=== PATIENT | female | born 1985 | race Caucasian/White ===

== ENCOUNTER 2017-04-24 14:59 | Outpatient (CLI) | payer OTHER ==
[2017-04-24 16:46] VITALS: BP 108/61
--- NOTE | 2017-04-25 08:39 | Ultrasound Report ---
BIOPHYSICAL PROFILE: INDICATION: KATY. COMPARISON: None similar. TECHNIQUE: Transabdominal ultrasound with Doppler interrogation. 2 - breathing movements 2 - movements 2 - posture and tone 2 - Qualitative amniotic fluid volume 8 - TOTAL SCORE OF POSSIBLE 8 Heart Rate (bpm) 147 CONCLUSION: Findings, as above.
--- NOTE | 2017-04-25 08:40 | Ultrasound Report ---
OB LIMITED INDICATION: KATY. COMPARISON: None similar at this institution. TECHNIQUE: Transabdominal grayscale ultrasound with Doppler interrogation. Gestation: [place] Position: Cephalic Amniotic Fluid: WNL (7-24 cm) KATY = 20.5 cm Heart Rate: 147 BPM CONCLUSION: Findings, as above.
== END 2017-04-24 17:57 | disposition home or self-care (01) ==
LOC: TRG 14:59
PROVIDERS: ATTEND Obstetrics & Gynecology
DX: O47.1 False labor at or after 37 completed weeks of gestation (principal); Z3A.37 37 weeks gestation of pregnancy
CPT/HCPCS: 59025; 76815; 76819

== ENCOUNTER 2017-04-28 14:26 | Outpatient (CLI) | payer OTHER ==
[2017-04-28 14:47] VITALS: BP 102/59
== END 2017-04-28 17:59 | disposition home or self-care (01) ==
LOC: TRG 14:26
PROVIDERS: ATTEND Obstetrics & Gynecology
DX: O47.1 False labor at or after 37 completed weeks of gestation (principal); Z3A.38 38 weeks gestation of pregnancy

== ENCOUNTER 2017-05-09 05:44 | Inpatient (IN) | payer OTHER ==
[2017-05-09] MEDS ORDERED: LACTATED RINGERS 2,000 ML ONE (06:26)
[2017-05-09] MEDS ORDERED: SUBLIMAZE IV ONE (06:41)
[2017-05-09] MEDS ORDERED: SUBLIMAZE ONE (06:43)
[2017-05-09] MEDS ORDERED: LACTATED RINGERS 1,000 ML IV ONE (06:44)
[2017-05-09] MEDS ORDERED: LACTATED RINGERS 1,000 ML IV SCH (07:00)
[2017-05-09] MEDS ORDERED: PITOCin/NS 20 UNIT/1000ML DRIP 20 UNITS/1,000 ML BAG IV SCH (07:00)
[2017-05-09 07:04] LABS: Hemoglobin 13.3 gm/dl (10.1-14.3); White Blood Count 15.4 K/mm3 (4.5-11.0)
[2017-05-09 07:11] LABS: Hematocrit 40.1 % (30.3-42.9); Mean Corpuscular HGB Conc 33 % (30-34); Mean Corpuscular Hemoglobin 32 pg (28-32); Mean Corpuscular Volume 96 fl (79-97); Platelet Count 267 K/mm3 (140-440); Red Blood Count 4.16 M/mm3 (3.65-5.03)
[2017-05-09] MEDS ORDERED: ePHEDrine SULFATE ONE (07:40)
--- NOTE | 2017-05-09 07:54 | Anesthesia Consultation ---
Anesthesia Consult and Med Hx Date of service: 05/09/17 - Airway Anesthetic Teeth Evaluation: Good ROM Head & Neck: Adequate Mental/Hyoid Distance: Adequate Mallampati Class: Class II - Pre-Operative Health Status ASA Pre-Surgery Classification: ASA3 Proposed Anesthetic Plan: Epidural, Spinal - Pulmonary Hx Asthma: No COPD: No Hx Pneumonia: No - Cardiovascular System Hx Hypertension: No - Central Nervous System Hx Seizures: No Hx Psychiatric Problems: No - Endocrine Hx Renal Disease: No Hx End Stage Renal Disease: No Hx Hypothyroidism: No Hx Hyperthyroidism: No - Hematic Hx Anemia: No Hx Sickle Cell Disease: No - Other Systems Hx Alcohol Use: No Hx Obesity: Yes (Morbid obesity, BMI 43.3)
--- NOTE | 2017-05-09 07:55 | History and Physical Report ---
History of Present Illness Date of examination: 05/09/17 Date of admission: 05/09/17 06:06 History of present illness: 31 yo LMP EDC 05/11/2017 @ 39.5 weeks gestation presented to triage at 8- 9cm. Patient was a transfer into care at 32 weeks gestation. course complicated by obesity with normal early GCT and second trimester GCT. Documented complete previa at 15 weeks, with anterior placenta documented on 03/21/17. S>D 04/18 @ 37 weeks EFW 7-12oz, KATY: 16cm. She is GBS negative. Past History Past Medical History: no pertinent history Past Surgical History: no surgical history Family/Genetic History: none - Obstetrical History Expected Date of Delivery: 05/11/17 Actual Gestation: 39 Week(s) 5 Day(s) : 2 Para: 1 (8-9oz female 2012) Hx # Term Pregnancies: 1 Number of Pregnancies: 0 Number of Living Children: 1 Medications and Allergies Allergies Allergy/AdvReac Type Severity Reaction Status Date / Time No Known Allergies Allergy Verified 05/09/17 06:34 Home Medications Medication Instructions Recorded Confirmed Last Taken Type Acetaminophen [Non-Aspirin] 325 mg PO PRN 05/09/17 05/09/17 1 Week Ago History ~05/02/17 Vit No.130/Iron/Folic 1 each PO QDAY 05/09/17 05/09/17 3 Days Ago History [ Tablet] ~05/06/17 Active Meds: Active Medications Lactated Ringer's (Lactated Ringers) 1,000 mls @ 999 mls/hr IV BOLUS ONE Stop: 05/09/17 07:44 Lactated Ringer's (Lactated Ringers) 1,000 mls @ 125 mls/hr IV DIRECT NAIF Last Admin: 05/09/17 06:30 Dose: 999 mls/hr Oxytocin/Sodium Chloride (Pitocin/Ns 20 Unit/1000ml Drip) 20 units in 1,000 mls @ 0 mls/hr IV DIRECT NAIF PRN Reason: As Directed Review of Systems All systems: negative Genitourinary: normal appearance, contractions, no leakage of fluid - Vital Signs Vital signs: Vital Signs Pulse BP 91 H 139/64 05/09/17 06:23 05/09/17 06:23 Temp Pulse Resp BP Pulse Ox 98.3 F 88 22 82/39 94 05/09/17 06:29 05/09/17 07:45 05/09/17 06:29 05/09/17 07:45 05/09/17 07:41 - Physical Exam Abdomen: Positive: normal appearance Vagina: Positive: normal moisture - Obstetrical FHR: category 2 FHR comments: minimal variability Uterine Contraction Monitor Mode: External Cervical Dilatation: 9.9 Cervical Effacement Percentage: 90 station: -3 Uterine Contraction Frequency (min): 2 Uterine Contraction Duration: 50-60 Uterine Contraction Pattern: Regular Uterine Tone Measurement Phase: Resting Uterine Contraction Intensity: Moderate Results Result Diagrams: 05/09/17 06:20 Abnormal lab results 05/09/17 Range/Units 06:20 WBC 15.4 H (4.5-11.0) K/mm3 All other labs normal. Assessment and Plan A: IUP at term Transitional Labor P: AROM Pitocin prn Anticipate
[2017-05-09] MEDS ORDERED: ePHEDrine SULFATE IV PRN (08:00)
[2017-05-09] MEDS ORDERED: fentaNYL-BUPIV 2 MCG/ML-0.125% 200 MCG/100 ML BAG EPIDURAL SCH (08:00)
[2017-05-09] MEDS ORDERED: NARCAN 2 MG/2 ML IV PRN (08:00)
[2017-05-09] MEDS ORDERED: NORCO 5/325 PO PRN (08:55)
--- NOTE | 2017-05-09 08:55 | Procedure Note ---
OB Delivery Note - Delivery Date of Delivery: 05/09/17 (9.2oz female @ 0829) Surgeon: IRENE DE LA TORRE Estimated blood loss: 300cc - Vaginal Delivery presentation: vertex Delivery position: OA Delivery induction: none Delivery augmentation: rupture of membranes Delivery monitor: external FHT, external uterine Route of delivery: Delivery placenta: spontaneous Delivery cord: 3 umbilical vessels Episiotomy: none Delivery laceration: none Anesthesia: epidural - A at 1 minute: 9 at 5 minutes: 9 Gender: Female (Pushed to delivery of of viable female. Spont. lusty cry. placed skin to skin. Apgars 9/9. Spont. placenta, unable to obtain cord blood. Pitocin infusing. Minimal bleeding. FF 2 below U, ML. Delayed cord clamping. No laceration on inpection.)
[2017-05-09] MEDS ORDERED: TUCKS PAD TP PRN (08:57)
[2017-05-09] MEDS ORDERED: BENADRYL PO PRN (08:57)
[2017-05-09] MEDS ORDERED: MILK OF MAGNESIA PO PRN (08:57)
[2017-05-09] MEDS ORDERED: TYLENOL PO PRN (08:57)
[2017-05-09] MEDS ORDERED: DULCOLAX PR PRN (08:57)
[2017-05-09] MEDS ORDERED: PHENERGAN PO PRN (08:57)
[2017-05-09] MEDS ORDERED: SODIUM CHLORIDE FLUSH SYRINGE 10 ML IV NR (09:00)
[2017-05-09] MEDS: MOTRIN PO SCH ×2 (09:41→18:30)
[2017-05-09 21:46] LABS: Hematocrit 30.7 % (30.3-42.9); Hemoglobin 10.4 gm/dl (10.1-14.3)
[2017-05-10] MEDS: MOTRIN PO SCH ×4 (00:05→18:33)
[2017-05-10] MEDS ORDERED: BOOSTRIX IM ONE (06:00)
--- NOTE | 2017-05-10 11:02 | Progress Note ---
Subjective Date of service: 05/10/17 Interval history: 1st day after normal vaginal delivery Patient is in the bed, comfortable. Pain is well controlled with pain meds. Ambulated well. No residual neurological deficit. No anesthesia complications. Objective - Constitutional Vitals: Vital Signs - 12hr 05/10/17 05/10/17 00:05 01:58 Temperature 98.4 F Pulse Rate 80 Respiratory 20 20 Rate Blood Pressure 96/54 [Right] - Labs CBC & Chem 7: 05/09/17 21:21
--- NOTE | 2017-05-10 11:42 | Progress Note ---
Assessment and Plan O: VSS AF PP H/H: 10.4/30.7 A: Stable PPday [address] D/c home Rx meds and PP instructions Subjective - Subjective Date of service: 05/10/17 Interval history: 31 yo LMP EDC 05/11/2017 @ 39.5 weeks gestation presented to triage at 8- 9cm. Patient was a transfer into care at 32 weeks gestation. course complicated by obesity with normal early GCT and second trimester GCT. Documented complete previa at 15 weeks, with anterior placenta documented on 03/21/17. S>D 04/18 @ 37 weeks EFW 7-12oz, KATY: 16cm. She is GBS negative. Patient reports: appetite normal, voiding normally, pain well controlled, flatus , ambulating normally, other (c/o afterbirth pains) [place]: doing well, nursing well Objective - Vital Signs Latest vital signs: Vital Signs Temp Pulse Resp BP 05/10/17 08:30 98.4 F 84 19 99/50 05/10/17 01:58 98.4 F 80 20 96/54 05/10/17 00:05 20 05/09/17 21:36 98.5 F 101 H 18 113/69 05/09/17 16:25 98.6 F 93 H 18 97/59 Intake and Output 05/09/17 05/10/17 05/10/17 22:59 06:59 14:59 Intake Total 120 600 Output Total 200 1200 Balance -80 -600 Intake: Oral 120 Intake, Free Water 600 Output: Urine 200 1200 Void 200 1200 Other: Total, Intake Amount 120 Total, Output Amount 200 400 # Voids Void 1 1 - Exam Breasts: Present: normal Lungs: Present: Normal air movement Abdomen: Present: normal appearance, soft. Absent: distention, tenderness Vulva: both: normal Uterus: Present: normal, firm, fundal height below umbilicus. Absent: bogginess , tenderness Extremities: Present: normal
--- NOTE | 2017-05-10 11:44 | Discharge Summary ---
Providers - Providers Date of Admission: 05/09/17 06:06 Date of discharge: 05/10/17 Attending physician: LUCY DELEON Primary care physician: LUCY DELEON Hospitalization Reason for admission: IUP - , IUP at term Delivery: Episiotomy: none Laceration: none Other procedures: none complications: none Discharge diagnosis: IUP at term delivered [place] baby: female Condition at discharge: Good Disposition: DC- TO HOME OR SELFCARE Plan - Discharge Medications Prescriptions: HYDROcodone/APAP 5-325 [[place] 5-325 mg TAB] 2 each PO Q4H PRN #30 tablet PRN Reason: Pain, Moderate (4-6) Ibuprofen [Motrin 600 MG tab] 600 mg PO Q6HR #30 tablet - Provider Discharge Summary Activity: routine, no sex for 6 weeks, no heavy lifting 4 weeks, no strenuous exercise Diet: routine Instructions: routine Additional instructions: [] Smoking cessation referral if applicable(refer to patient education folder for contact #) [] Refer to [facility]'s [facility] Booklet Call your doctor immediately for: * Fever > 100.5 * Heavy vaginal bleeding ( >1 pad per hour) * Severe persistent headache * Shortness of breath * Reddened, hot, painful area to leg or breast * Drainage or odor from incision. * Keep incision clean and dry at all times and follow doctor's instructions regarding bathing/showering - Follow up plan Follow up: LUCY DELEON MD [Primary Care Provider] - IRENE DE LA TORRE CNM [Advanced Practice Nurse] - (RTO 4 weeks )
[2017-05-10] MEDS: PRENATAL VITAMIN PO SCH (12:53)
[2017-05-11] MEDS: MOTRIN PO SCH ×3 (00:06→11:37)
[2017-05-11 09:23] VITALS: BP 92/49
[2017-05-11] MEDS: PRENATAL VITAMIN PO SCH (11:37)
[2017-05-11] MEDS ORDERED: Fluarix Quad 2017-2018(36 MOS+ IM ONE (12:00)
== END 2017-05-11 13:15 | disposition home or self-care (01) | DRG 774 ==
LOC: TRG 05:44 → LD 06:06 → OB 11:22
PROVIDERS: ADMIT Obstetrics & Gynecology; ATTEND Obstetrics & Gynecology
PROC: 10E0XZZ Delivery of Products of Conception, External Approach (ICD-10-PCS; principal; 2017-05-09)
PROC: 3E0R3BZ Introduction of Anesthetic Agent into Spinal Canal, Percutaneous Approach (ICD-10-PCS; 2017-05-09)
PROC: 00HU33Z Insertion of Infusion Device into Spinal Canal, Percutaneous Approach (ICD-10-PCS; 2017-05-09)
DX: O99.214 Obesity complicating childbirth (principal); O44.02 Complete placenta previa NOS or without hemorrhage, second trimester; Z68.41 Body mass index [BMI] 40.0-44.9, adult; Z3A.39 39 weeks gestation of pregnancy; Z37.0 Single live birth; E66.01 Morbid (severe) obesity due to excess calories; O90.81 Anemia of the puerperium; D64.9 Anemia, unspecified
CPT/HCPCS: 36415; 85014; 85018; 85027; 86592; 86850; 86900; 86901; 90471; 90686; 90715; 99211; G0008; G0463; J2590; J3010; J7120